=== PATIENT | male | born 1935 | race Caucasian/White ===

== ENCOUNTER 2016-08-02 10:32 | Emergency (ER) | payer OTHER ==
[~2016-08-02] VITALS: Ht 190.5 cm; Wt 85.0 kg
[~2016-08-02 10:32] MED LIST: ASPIRIN325 MG PO; CELEBREX200 MG PO; COZAAR100 MG PO; FOLIC ACID0.8 M1 PO; GLYBURIDE5 MG PO; LOPRESSOR50 MG PO; METOPROLOL SUCC50 MG PO; METOPROLOL TA37.5 MG PO; NITROSTAT0.4 MG SL; OMEPRAZOLE40 M1 PO; TERAZOSIN HCL5 MG PO; VITAMIN B-122000 MC1 PO; VITAMIN D31000 UNIT PO
[2016-08-02 11:31] LABS: HEMATOCRIT 41.2 % (38.0-50.0); MCH 33.1 PG (29.0-34.0); MCHC 33.3 G/DL (30.0-36.0); MCV 99.5 FL (86-99); MEAN PLAT.VOLUME 11.3 uM^3 (9.0-12.4); PLATELET COUNT 138 K/uL (156-360); RBC DIS.WIDTH-CV 12.5 % (11.8-14.6); RBC DIS.WIDTH-SD 45.9 % (39-53); RED BLOOD COUNT 4.14 M/uL (4.00-5.50); WHITE BLOOD COUNT 8.8 K/uL (4.1-10.2)
[2016-08-02 11:43] LABS: CHLORIDE 104 mEq/L (99-109); POTASSIUM 4.1 mEq/L (3.7-5.4); SODIUM 140 mEq/L (136-147)
[2016-08-02 11:45] LABS: GLUCOSE 198 mg/dL (70-99)
[2016-08-02 11:46] LABS: ANION GAP 11 MEQ/L (2-14)
[2016-08-02 11:48] LABS: GFR ESTIMATE (CALCULATED) 57 mL/min/
[2016-08-02 11:49] LABS: UREA NITROGEN (BUN) 32 mg/dL (9-23)
[2016-08-02 13:27] LABS: ADD MIUA? YES; BILIRUBIN NEGATIVE; BLOOD SMALL; COLOR YELLOW ((YELLOW)); GLUCOSE (STRIP) NEGATIVE; KETONES 5; LEUKOCYTES NEGATIVE; NITRITE NEGATIVE; PROTEIN (STRIP) 30; SPECIFIC GRAVITY 1.026 (1.000-1.030); UROBILINOGEN 0.2 MG/DL (0.2-1.0)
[2016-08-02 13:44] LABS: BACTERIA NONE SEEN /HPF; EPITHELIAL CELLS RARE /HPF; HYALINE CASTS 15-20 /LPF; MUCUS TRACE /LPF; RED BLOOD CELLS 0-5 /HPF (0-5); UCUL ADDED? NO; WHITE BLOOD CELLS 0-5 /HPF (0-5)
[2016-08-02 13:55] LABS: C DIFF TOXIN NEGATIVE (NEGATIVE)
[2016-08-02 13:56] LABS: PROBE CHECK PASS; SPECIMEN PROCESSING CONTROL PASS
[2016-08-02] MEDS ORDERED: ZOFRAN4 MG PO (14:05)
[2016-08-02 14:18] VITALS: BP 124/70
== END 2016-08-02 14:19 | disposition home or self-care (01) ==
LOC: EME 10:32
PROVIDERS: Physician Assistant
DX: R11.2 Nausea with vomiting, unspecified (principal); R19.7 Diarrhea, unspecified; E78.5 Hyperlipidemia, unspecified; I10 Essential (primary) hypertension; Z79.82 Long term (current) use of aspirin; Z88.0 Allergy status to penicillin; E11.65 Type 2 diabetes mellitus with hyperglycemia
CPT/HCPCS: 80048; 81003; 85027; 87493; 87506; 99281; 99285; J2405; J7030

== ENCOUNTER 2017-01-03 12:37 | Emergency (ER) | payer OTHER ==
[~2017-01-03] VITALS: Ht 190.5 cm; Wt 83.8 kg
[~2017-01-03 12:37] MED LIST changes: +ZOFRAN4 MG PO
[2017-01-03 12:54] LABS: POINT-OF-CARE METER ID UU13113778
[2017-01-03 13:52] LABS: HEMATOCRIT 37.8 % (38.0-50.0); MCH 33.6 PG (29.0-34.0); MCHC 33.9 G/DL (30.0-36.0); MCV 99.2 FL (86-99); MEAN PLAT.VOLUME 11.4 uM^3 (9.0-12.4); PLATELET COUNT 142 K/uL (156-360); RBC DIS.WIDTH-CV 12.5 % (11.8-14.6); RBC DIS.WIDTH-SD 45.8 % (39-53); RED BLOOD COUNT 3.81 M/uL (4.00-5.50); WHITE BLOOD COUNT 10.6 K/uL (4.1-10.2)
[2017-01-03 14:00] LABS: CHLORIDE 102 mEq/L (99-109); POTASSIUM 4.5 mEq/L (3.7-5.4); SODIUM 136 mEq/L (136-147)
[2017-01-03 14:03] LABS: ANION GAP 11 MEQ/L (2-14)
[2017-01-03 14:05] LABS: GFR ESTIMATE (CALCULATED) > 59 mL/min/
[2017-01-03 14:06] LABS: UREA NITROGEN (BUN) 21 mg/dL (9-23)
[2017-01-03 14:10] LABS: INTER. NORMALIZED RATIO 1.1; PROTHROMBIN TIME 11.8 SEC (10.2-12.9)
[2017-01-03 14:12] LABS: PTT 28.6 SEC (25-37)
[2017-01-03 14:19] LABS: GLUCOSE 124 mg/dL (70-99)
[2017-01-03 14:27] LABS: TROP-I INTERPRETATION NEGATIVE; TROPONIN-I < 0.01 ng/mL (0.0-0.30)
[2017-01-03 17:45] VITALS: BP 150/66
[2017-01-03 17:50] LABS: ADD MIUA? YES; BILIRUBIN NEGATIVE; BLOOD SMALL; COLOR STRAW ((YELLOW)); GLUCOSE (STRIP) NEGATIVE; KETONES NEGATIVE; LEUKOCYTES NEGATIVE; NITRITE NEGATIVE; PROTEIN (STRIP) NEGATIVE; SPECIFIC GRAVITY 1.006 (1.000-1.030); UROBILINOGEN 0.2 MG/DL (0.2-1.0)
[2017-01-03 18:02] LABS: BACTERIA NONE SEEN /HPF; CASTS NONE SEEN /LPF; CRYSTALS NONE SEEN; EPITHELIAL CELLS NONE SEEN /HPF; MUCUS NONE SEEN /LPF; RED BLOOD CELLS RARE /HPF (0-5); WHITE BLOOD CELLS RARE /HPF (0-5)
== END 2017-01-03 17:46 | disposition home or self-care (01) ==
LOC: EME 12:37
PROVIDERS: Physician Assistant
DX: R42 Dizziness and giddiness (principal); E86.0 Dehydration; E11.9 Type 2 diabetes mellitus without complications; E78.5 Hyperlipidemia, unspecified; I10 Essential (primary) hypertension; Z88.0 Allergy status to penicillin; Z79.82 Long term (current) use of aspirin
CPT/HCPCS: 70450; 71020; 80048; 81003; 82948; 84484; 85027; 85610; 85730; 93005; 99281; 99285; J7030

== ENCOUNTER 2017-05-03 10:24 | Day surgery (SDC) | payer OTHER ==
[~2017-05-03] VITALS: Ht 190.5 cm; Wt 86.2 kg
[~2017-05-03 10:24] MED LIST changes: +COZAAR25 MG PO; +DITROPAN XL5 MG PO; +EFFEXOR75 MG PO; +LIPITOR20 MG PO; +LOPRESSOR25 MG PO
[2017-05-03] MEDS ORDERED: GLUCOPHAGE500 MG PO (11:42)
[2017-05-03 11:50] VITALS: BP 189/80
[2017-05-03] MEDS ORDERED: NORCO 5/3251 TABLET PO (15:47)
[2017-05-03 16:40] VITALS: BP 183/81
[2017-05-03 17:37] VITALS: BP 178/82
== END 2017-05-03 17:30 | disposition home or self-care (01) ==
LOC: RAD 10:24 → SDC 10:24 → RAD 12:00 → SDC 12:00
PROC: 07B50ZX Excision of Right Axillary Lymphatic, Open Approach, Diagnostic (ICD-10-PCS; principal; 2017-05-03)
DX: C43.59 Malignant melanoma of other part of trunk (principal); I10 Essential (primary) hypertension; E11.9 Type 2 diabetes mellitus without complications; Z79.82 Long term (current) use of aspirin; E78.5 Hyperlipidemia, unspecified; R94.31 Abnormal electrocardiogram [ECG] [EKG]; I25.2 Old myocardial infarction; Z79.84 Long term (current) use of oral hypoglycemic drugs; Z95.5 Presence of coronary angioplasty implant and graft; Z88.0 Allergy status to penicillin
CPT/HCPCS: 78195; 78999; 80048 91; 81003; 85027; 88305; 88307; A9541; J2405; J3010